=== PATIENT | male | born 1970 | race Caucasian/White ===

== ENCOUNTER 2023-06-13 09:49 | Outpatient (AMB) | payer OTHER, SELFPAY ==
--- NOTE | 2023-06-13 10:03 | HO.NEPHOV ---
HPI HPI Comments History of Present Illness Details I had the pleasure of seeing Rishabh in follow-up of his mild CKD and hypertension. He is tolerating lisinopril pretty well. His serum creatinine has been stable. He does not have any angioedema. He occasionally gets some dry cough which he is not sure whether it is due to ADRIANNA-inhibitor. He has not had any cough for last 3 weeks. His blood pressure has been stable. He has not lost any significant weight. He has no history of hypokalemia, thyroid dysfunction, hypercalcemia. He has history of nephrolithiasis. He had a CT scan in the past with contrast which showed small left kidney. His serum creatinine had gone up to 1.4 which has settled down now to 1.2. He has no orthostatic symptoms. Is compliant with his medications. He has been started on tamsulosin recently. Otherwise he feels well. [facility] Medical History (Updated 06/13/23 @ 15:25 by David Barrios MD) Hypertension Kidney stones Surgical History (Updated 06/13/23 @ 10:09 by Mayi Galan MA) History of kidney surgery Family History (Updated 06/13/23 @ 10:11 by Mayi Galan MA) Father Colon cancer Glaucoma Sister Breast cancer Mother Glaucoma Social History (Updated 06/13/23 @ 10:11 by Mayi Galan MA) Alcohol intake: never Patient Tobacco Use Status: Never used Tobacco Vital Signs 06/13/23 10:07 Height 6 ft Weight 245 lb 8 oz BMI 33.3 BP 110/82 Blood Pressure Location Lt brachial Position Sitting Pulse 70 Pulse Source Pulse Oximeter Pulse Oximetry (%) 96 Oxygen Delivery Method Room Air Physical Exam Vital Signs: Last Vital Signs Pulse 70 06/13/23 10:07 BP 110/82 06/13/23 10:07 Pulse Ox 96 06/13/23 10:07 Oxygen Delivery Method Room Air 06/13/23 10:07 BMI result Body Mass Index 33.3 Const General: comfortable and no acute distress Orientation/consciousness: patient oriented x3 HEENT Head: Yes normocephalic Mouth: Normal oral and palatal mucosa present Eyes EOM: EOMs intact bilaterally Neck Neck: Yes supple Resp Auscultation: clear to auscultation bilaterally Cardio Jugular venous distension: no JVD Rate: regular rate GI Palpation (GI): Soft to palpation Auscultation: normal bowel sounds General: Yes no CVA tenderness Back/Spine/Pelvis Back: no CVA tenderness Skin General skin exam: no rashes or lesions noted Neuro General: patient oriented x3 and moves all extremities Extrem General: Yes no pedal edema Assessment & Plan Assessment & Plan (1) Hypertension: Code(s): I10 - Essential (primary) hypertension Qualifiers: Hypertension type: secondary to other renal disorders Qualified Code(s): I15.1 - Hypertension secondary to other renal disorders (2) Kidney stones: Code(s): N20.0 - Calculus of kidney (3) CKD (chronic kidney disease) stage 2, GFR 60-89 ml/min: Code(s): N18.2 - Chronic kidney disease, stage 2 (mild) Plan Rishabh has mild CKD. His renal functions are pretty stable. His recent serum creatinine is 1.22. He had nuclear imaging of his kidneys which showed reduced function on the left side. He needs to lose weight. He should be on a low-sodium diet. He needs to maintain good hydration. His blood pressure has been at goal. He has no orthostatic symptoms. He continues to take lisinopril at night. I did not make any medication changes today. After the next visit I plan to do a 24 hour urine collection for creatinine clearance. He is not known to any significant proteinuria. I answered all his questions and concerns. Follow-up appointment given. Orders: Orders Electrolytes Today I10 - Essential (primary) hypertension, N20.0 - Calculus of kidney Blood Urea Nitrogen Today I10 - Essential (primary) hypertension, N20.0 - Calculus of kidney Creatinine Today I10 - Essential (primary) hypertension, N20.0 - Calculus of kidney Protein Creatinine Ratio, Ur Today I10 - Essential (primary) hypertension, N20.0 - Calculus of kidney Coding Level of Care Code Est Pt Level 4 (09132) Diagnoses Hypertension secondary to other renal disorders I15.1 Hypertension type: secondary to other renal disorders Kidney stones N20.0 CKD (chronic kidney disease) stage 2, GFR 60-89 ml/min N18.2 Results Reviewed Nephrology Results: No Data to Display
[2023-06-13 10:07] VITALS: BP 110/82; PULSE 70; O2SAT 96; BMI 33.3
== END 2023-06-13 10:46 | disposition home or self-care (01) ==
PROVIDERS: PCP Internal Medicine; Visit Provider Internal Medicine Nephrology
DX: I15.1 Hypertension secondary to other renal disorders (principal); N20.0 Calculus of kidney; N18.2 Chronic kidney disease, stage 2 (mild)
CPT/HCPCS: 99214

== ENCOUNTER → 2023-06-13 09:49 | Outpatient (BNVA) | payer OTHER, SELFPAY | PROVIDERS: PCP Internal Medicine; Visit Provider Internal Medicine Nephrology ==

== ENCOUNTER 2024-06-09 09:16 | Outpatient (AMB) | payer OTHER, SELFPAY ==
--- NOTE | 2024-06-09 09:39 | HO.NEPHOV ---
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 He is tolerating lisinopril pretty well. His serum creatinine has been stable. He does not have any angioedema. He occasionally gets some dry cough which he is not sure whether it is due to ADRIANNA-inhibitor. He has not had any cough for last 3 weeks. His blood pressure has been stable. He has not lost any significant weight. He has no history of hypokalemia, thyroid dysfunction, hypercalcemia. He has history of nephrolithiasis. He had a CT scan in the past with contrast which showed small left kidney. His serum creatinine had gone up to 1.4 which has settled down now to 1.2. He has no orthostatic symptoms. Is compliant with his medications. He has been started on Tirzepatide with weight loss and his metoprolol dose has been increased to keep his BP at goal. Otherwise he feels well. [facility] Medical History (Updated 06/13/23 @ 15:25 by David Barrios MD) Hypertension Kidney stones Surgical History History of kidney surgery Family History Father Colon cancer Glaucoma Sister Breast cancer Mother Glaucoma Social History Alcohol intake: never Patient Tobacco Use Status: Never used Tobacco Review of Systems Const All systems reviewed & are unremarkable except as noted in HPI and below Physical Exam Vital Signs: Last Vital Signs Pulse 62 06/09/24 09:41 BP 100/70 06/09/24 09:41 Pulse Ox 98 06/09/24 09:41 Oxygen Delivery Method Room Air 06/09/24 09:41 BMI result Body Mass Index 33.1 Const General: comfortable and no acute distress Orientation/consciousness: patient oriented x3 HEENT Head: Yes normocephalic Mouth: Normal oral and palatal mucosa present Eyes EOM: EOMs intact bilaterally Neck Neck: Yes supple Resp Auscultation: clear to auscultation bilaterally Cardio Jugular venous distension: no JVD Rate: regular rate GI Palpation (GI): Soft to palpation Auscultation: normal bowel sounds General: Yes no CVA tenderness Back/Spine/Pelvis Back: no CVA tenderness Skin General skin exam: no rashes or lesions noted Neuro General: patient oriented x3 and moves all extremities Extrem General: Yes no pedal edema Results Reviewed Nephrology Results: No Data to Display Assessment & Plan Assessment & Plan (1) CKD (chronic kidney disease) stage 2, GFR 60-89 ml/min: Code(s): N18.2 - Chronic kidney disease, stage 2 (mild) Category: Medical (2) Kidney stones: Code(s): N20.0 - Calculus of kidney Category: Medical (3) Hypertension: Code(s): I10 - Essential (primary) hypertension Category: Medical Qualifiers: Hypertension type: secondary to other renal disorders Qualified Code(s): I15.1 - Hypertension secondary to other renal disorders Plan Rishabh has mild CKD. His renal functions are pretty stable. His recent serum creatinine is 1.1. He had nuclear imaging of his kidneys which showed reduced function on the left side. He needs to lose weight. He should be on a low-sodium diet. He needs to maintain good hydration. His blood pressure has been at goal. He has no orthostatic symptoms. He continues to take lisinopril at night. I did not make any medication changes today. I ordered a 24 hour urine collection for creatinine clearance at next visit . He is not known to any significant proteinuria. I answered all his questions and concerns. Follow-up appointment given Orders: Orders Protein Creatinine Ratio, Ur 1 Year I15.1 - Hypertension secondary to other renal disorders, N18.2 - Chronic kidney disease, stage 2 (mild), N20.0 - Calculus of kidney Creatinine Clearance Urine 24U 1 Year I15.1 - Hypertension secondary to other renal disorders, N18.2 - Chronic kidney disease, stage 2 (mild), N20.0 - Calculus of kidney Creatinine 1 Year I15.1 - Hypertension secondary to other renal disorders, N18.2 - Chronic kidney disease, stage 2 (mild), N20.0 - Calculus of kidney Blood Urea Nitrogen 1 Year I15.1 - Hypertension secondary to other renal disorders, N18.2 - Chronic kidney disease, stage 2 (mild), N20.0 - Calculus of kidney Electrolytes 1 Year I15.1 - Hypertension secondary to other renal disorders, N18.2 - Chronic kidney disease, stage 2 (mild), N20.0 - Calculus of kidney Coding Level of Care Code Est Pt Level 4 (51617) Diagnoses CKD (chronic kidney disease) stage 2, GFR 60-89 ml/min N18.2 Kidney stones N20.0 Hypertension secondary to other renal disorders I15.1 Hypertension type: secondary to other renal disorders
[2024-06-09 09:41] VITALS: BP 100/70; PULSE 62; O2SAT 98; BMI 33.1
--- OUTSIDE RECORDS SUMMARY | 2024-06-09 10:15 | XMS_ITS | Clinical Summary ---
Author Organization [facility] Address [address] [facility] [address] [place] [address] Phone Care Team Providers Care Lead Military Analyst Name Role Phone Rachana Benítez MD Primary Care Provider [phone] Allergies No known active allergies Medications metoprolol succinate XL (TOPROL XL) 50 MG 24 hr tablet Take 50 mg by mouth 1 (one) time each day Do not crush or chew. Active propranolol (INDERAL) 40 MG tablet Take 40 mg by mouth 1 (one) time each day 11/16/2021 Active simvastatin (ZOCOR) 20 MG tablet Take 20 mg by mouth every night 11/23/2021 Active lisinopril 2.5 MG tablet Take 1 tablet (2.5 mg total) by mouth 1 (one) time each day 90 tablet 3 12/10/2023 Active Active Problems Problem Noted Date Diagnosed Date Chronic kidney disease, stage 2 (mild) 2 Hypertension 06/12/2021 Essential (primary) hypertension 06/08/2021 Resolved Problems Problem Noted Date Diagnosed Date Resolved Date Obese class I 06/08/2021 06/08/2021 Family History Medical History Relation Comments Cancer Father Colon Cancer Stroke Father Relation Status Comments Father Mother Social History Tobacco Use Types Packs/Day Years Used Date Smoking Tobacco: Never Smokeless Tobacco: Never Tobacco Cessation:Counseling Given: Not Answered Alcohol Use Standard Drinks/Week Comments Never 0 (1 standard drink = 0.6 oz pur e alcohol) Sex and Gender Information Value Date Recorded Sex Assigned at Not on file Legal Sex Male 1:31 PM EST Gender Identity Not on file Sexual Orientation Not on file Last Filed Vital Signs Vital Sign Reading Time Taken Comments Blood Pressure 110/80 06/04/2022 4:04 PM EDT Pulse 79 06/04/2022 4:04 PM EDT Temperature - - Respiratory Rate - - Oxygen Saturation - - Inhaled Oxygen Concentration - - Weight 118 kg (259 lb 3.2 oz) 06/04/2022 4:04 PM EDT Height - - Body Mass Index - - Plan of Treatment Health Maintenance Due Date Last Done Comments Pneumococcal Vaccine: Pediat rics (0 to 5 Years) and At-Risk Patients (6 to 64 Years) (1 of 2 - PCV) 1975 Hepatitis B Vaccine (1 of 3 - 19+ 3-dose series) 04/17 Colorectal Cancer Screening: Annual FOBT 2018 Colorectal Cancer Screening: Colonoscopy 2018 Colorectal Cancer Screening: Sigmoidoscopy 2018 Influenza Vaccine (Season Ended) 2024 Insurance Care Teams Lead Military Analyst Relationship Specialty Start Date End Date Rachana Benítez MD [phone] PCP - General Internal Medicine 06/12/21
== END 2024-06-09 10:11 | disposition home or self-care (01) ==
LOC: HO.HKAS 09:16
PROVIDERS: PCP Internal Medicine; Visit Provider Internal Medicine Nephrology
DX: N18.2 Chronic kidney disease, stage 2 (mild) (principal); N20.0 Calculus of kidney; I15.1 Hypertension secondary to other renal disorders
CPT/HCPCS: 99214